=== PATIENT | male | born 1990 | race Caucasian/White ===

== ENCOUNTER 2017-02-26 11:30 | Emergency (ER) | payer SELFPAY ==
--- NOTE | 2017-02-26 11:56 | ER Document Report ---
HPI - HPI Patient complains to provider of: foot pain Pain Level: 3 Context: Patient is a 26-year-old male who presents emergency department complaining of right foot pain. Patient states that he was trying to push a car when he felt something pop in his foot. States he has been taking Motrin and Aleve at home and using ice and heat with significant improvement in his symptoms. States he came here today to be evaluated to be cleared to go back to work. He states that he is required to stand for long periods of time and he wanted to make sure that nothing was broken in his foot. Otherwise he states that he has some pain with movement but denies any weakness or difficulty walking. Past Medical History - Social History Smoking Status: Smoker,Current Status Unk Family History: Reviewed & Not Pertinent - Immunizations Hx Diphtheria, Pertussis, Tetanus Vaccination: Yes Vertical Provider Document - CONSTITUTIONAL Notes: PHYSICAL EXAM GENERAL: Alert, interacts well. EXTREMITIES: Moves all 4 extremities spontaneously. No edema, radial and dorsalis pedis pulses 2/4 bilaterally. No cyanosis. Strength 5 out of 5 bilaterally in bilateral lower extremities. Full range of motion without any weakness appreciated NEUROLOGICAL: Alert and oriented x4. Normal speech. PSYCH: Normal affect, normal mood. SKIN: Warm, dry, normal turgor. No rashes or lesions noted. Evidence of mild ecchymosis on the sole of the right foot within the arch but nontender to palpation. - INFECTION CONTROL TRAVEL OUTSIDE OF THE [place] IN LAST 30 DAYS: No - RESPIRATORY O2 Sat by Pulse Oximetry: 100 Course - Re-evaluation Re-evalutation: 02/26/17 13:28 Patient is a 26-year-old male who presents with right foot injury. Presentation is consistent with plantar fasciitis. No evidence of avulsion fracture on x-ray. Patient able to ambulate without any difficulty. Will discharge home with instruction to follow-up with primary care as needed otherwise to utilize [id number] anti-inflammatories ice and heat as tolerated. Patient agrees with plan and is stable for discharge - Vital Signs Vital signs: Temp Pulse Resp BP Pulse Ox 98.5 F 101 H 18 132/60 H 100 02/26/17 11:30 02/26/17 11:30 02/26/17 11:30 02/26/17 11:30 02/26/17 11:30 - Diagnostic Test Radiology reviewed: Image reviewed, Reports reviewed Discharge - Discharge Clinical Impression: Plantar fasciitis Condition: Good Disposition: HOME, SELF-CARE Instructions: Use of [id number] Ibuprofen ([facility]), Ice & Elevation ([facility]), Plantar Fasciitis or Heel Spur ([facility])
--- NOTE | 2017-02-26 13:03 | RADIOLOGY REPORT (SQ) ---
EXAM DESCRIPTION: FOOT RIGHT COMPLETE COMPLETED DATE/TIME: 02/26/2017 12:25 pm REASON FOR STUDY: pain plantar midfoot COMPARISON: None. NUMBER OF VIEWS: Three views. TECHNIQUE: AP, lateral and oblique radiographic images acquired of the right foot. LIMITATIONS: None. FINDINGS: MINERALIZATION: Normal. BONES: No acute fracture or dislocation. No worrisome bone lesions. JOINTS: No effusions. SOFT TISSUES: There is a 3 mm x 0.5 mm linear foreign body in the plantar soft tissues best shown on lateral view. This is difficult to visualize on the frontal and oblique films. Patient has no penet rating trauma recently, this could reflect an old chronic plantar foreign body. OTHER: No other significant finding. IMPRESSION: No acute fracture or malalignment. Probably chronic plantar tiny foreign body TECHNICAL DOCUMENTATION: JOB ID: [id number]- All Rights Reserved
[2017-02-26] MEDS ORDERED: IBUPROFEN 600 MG TABLET PO ONE (13:29)
[2017-02-26 13:53] VITALS: BP 115/62
== END 2017-02-26 13:52 | disposition home or self-care (01) ==
LOC: ER 11:30
DX: M72.2 Plantar fascial fibromatosis (principal); M79.671 Pain in right foot; F17.200 Nicotine dependence, unspecified, uncomplicated
CPT/HCPCS: 99283